=== PATIENT | male | born 1950 | race Caucasian/White ===

== ENCOUNTER 2017-08-17 19:17 | Emergency (ER) | payer OTHER ==
[2017-08-17 19:22] VITALS: BP 146/82; PULSE 79; TEMP 99.1; BMI 29.6
--- NOTE | 2017-08-17 19:43 | PDOC ---
History of Present Illness - General History Source: Patient Exam Limitations: No Limitations <Mone Bailey - Last Filed: 08/17/17 20:43> - General History Source: Patient Exam Limitations: No Limitations <Pati Graham I - Last Filed: 08/17/17 22:36> - General Chief Complaint: Syncope/Near Syncope Stated Complaint: SYNCOPE WITH FACIAL INJURY Time Seen by Provider: 08/17/17 19:31 - History of Present Illness Initial Comments: 08/17/17 20:05 The patient is a 67 year old male with past medical history of hypertension and prostate cancer who presents to the ED s/p syncopal episode earlier today. As per patient, he and his family were at the [employer] today. He states he was wearing his ski jacket while carrying his other family members jackets and was waiting for his family to finish using the bathroom where he felt faint. He subsequently crouched down and upon getting up he lost consciousness and hit his head and face on the floor. When the patient gained consciousness, he noticed everyone crowded around him. He also noted his nose was bleeding and his tooth was chipped. The patient denies any associated double vision, headache, numbness or tingling in extremities. He denies any fever, chills, nausea, vomiting, diarrhea. Denies any palpitations, diaphoresis , shortness of breath or chest pain. He denies any urinary symptoms. PAST MEDICAL HISTORY: hypertension and prostate cancer PAST SURGICAL HISTORY: no significant history FAMILY HISTORY: no pertinent history SOCIAL HISTORY: Pt lives with family and is employed. MEDICATIONS: reviewed ALLERGIES: As per nursing notes General: No fevers or chills, no weakness, no weight loss HEENT: Present: nose bleed, chipped tooth No change in vision. No sore throat,. No ear pain CardioVascular: No chest pain or shortness of breath Respiratory:No cough, or wheezing. Gastrointestinal: no nausea, vomiting, diarrhea or constipation, No rectal bleeding Genitourinary: No dysuria, hematuria, or frequency Musculoskeletal: No joint or muscle pain or swelling Neurologic: Present: syncope No headache, vertigo, dizziness Psychiatric: nor depression Skin: No rashes or easy bruising Endocrine: no increased thirst or abnormal weight change Allergic: no skin or latex allergy All other systems reviewed and normal General: Well-nourished well-developed individual, no acute distress HEENT: Throat: Normal, tonsils normal, no erythema or exudate. Abrasion and contusion over bridge of the nose. Abrasion of lower lift. Chip in left front tooth. Neck: Supple, no meningeal signs, no lymphadenopathy Eyes::Pupils equal reactive and round, extraocular motion intact Chest: Nontender to palpation Cardiac: S1-S2 normal, regular rate and rhythm, no murmurs rubs or gallops Respiratory: Lungs clear to auscultation bilateral Abdomen: Soft, nondistended, normal bowel sounds, nontender to palpation diffusely Extremities: Warm, dry, no cyanosis, clubbing, or edema Skin: No rashes Neuro: Alert and oriented x3, nonfocal exam, grossly intact, normal gait Psych: Normal mood and affect (Mone Bailey) A portion of this note was documented by scribe services under my direction. I have reviewed the details of the note, within reason, and agree with the documentation. The case summary and management plan written by me. Medical decision making this is a 67-year-old male who comes in status post a syncope event. Patient does not have history of syncope. Patient did not know he was given a syncopized and just woke up on the floor. Patient fell hard enough that he hit his face broke and chipped a tooth. Patient syncopal event was not witnessed by anyone he knew so was uncertain as to how long he was unconscious. Will obtain workup including CBC, comp, cardiac profile, d-dimer Will order CBC, nasal bone x-rays, chest x-ray, head CT Will reassess in follow-up. 08/17/17 21:[address] still pending patient without complaints, clinically stable walking around ED patient states that he wants to sign out AGAINST MEDICAL ADVICE if everything comes back negative 22:20 Patient's workup is complete there is a slight elevation in his white count of 14,000 but no left shift Chemistries are unremarkable with the exception of mildly elevated AST uncertain the etiology as none of the other liver enzymes are on elevated Patient's d-dimer is still pending patient does not want to wait for the results will leave AGAINST MEDICAL ADVICE and I will get off phone number where I can reach him and he has agreed to come back if it is elevated Patient's x-rays are all negative for any acute pathology Patient's head CT is negative for any acute pathology Patient will be discharged AGAINST MEDICAL ADVICE, patient understands that this could result in serious injury if he passes out again, or even . 08/17/17 22:35 Patient's d-dimer came back at 558 which is slightly elevated however when I just for age and normal is up to 670 which puts it well within the normal limit. (Pati Graham I) Past History <Mone Bailey - Last Filed: 08/17/17 20:43> - Past Medical History Anemia: No Asthma: No Cancer: Yes (PROSTATE) Cardiac Disorders: No CVA: No COPD: No CHF: No Dementia: No Diabetes: No GI Disorders: No Disorders: Yes (?BPH) HTN: Yes (DX 2010) Hypercholesterolemia: No Liver Disease: No Seizures: No Thyroid Disease: No - Surgical History Abdominal Surgery: No Appendectomy: No Cardiac Surgery: No Cholecystectomy: No Lung Surgery: No Neurologic Surgery: No Orthopedic Surgery: No - Immunization History Immunization Up to Date: Yes - Suicide/Smoking/Psychosocial Hx Smoking History: Never smoked Have you smoked in the past 12 months: No Hx Alcohol Use: Yes (RARELY) Drug/Substance Use Hx: No Substance Use Type: Alcohol Hx Substance Use Treatment: No <Pati Graham I - Last Filed: 08/17/17 22:36> - Past Medical History Allergies/Adverse Reactions: Allergies Allergy/AdvReac Type Severity Reaction Status Date / Time No Known Allergies Allergy Verified 03/02/16 14:22 Home Medications: Ambulatory Orders Cholecalciferol (Vitamin D3) [Vitamin D3] 2,000 unit PO DAILY #90 tablet Olmesartan Medoxomil [Benicar] 20 mg PO DAILY 08/17/17 Cardiac Specific PMH - Complaint Specific PMHX Pacemaker: No <Pati Graham I - Last Filed: 08/17/17 22:36> - Vital Signs Last Vital Signs Temp Pulse Resp BP Pulse Ox 99.1 F 79 16 146/82 98 08/17/17 19:19 08/17/17 19:19 08/17/17 19:19 08/17/17 19:19 08/17/17 19:19 Heart Score/ECG Review <Mone Bailey - Last Filed: 08/17/17 20:43> <Pati Graham I - Last Filed: 08/17/17 22:36> - ECG Intrepretation Comment:: 08/17/17 20:43 ECG obtained at 20:40 Normal sinus at 76 bpm (Mone Bailey) ED Treatment Course - LABORATORY CBC & Chemistry Diagram: 08/17/17 20:09 08/17/17 20:09 <Mone Bailey - Last Filed: 08/17/17 20:43> - LABORATORY CBC & Chemistry Diagram: 08/17/17 20:09 08/17/17 20:09 <Pati Graham I - Last Filed: 08/17/17 22:36> - ADDITIONAL ORDERS Additional order review: Laboratory Results 08/17/17 08/17/17 08/17/17 20:56 20:09 20:09 D-Dimer Sodium Potassium Chloride Carbon Dioxide Anion Gap BUN Creatinine Creat Clearance w eGFR Random Glucose Calcium Total Bilirubin AST ALT Alkaline Phosphatase Creatine Kinase 128 Troponin I < 0.03 Total Protein Albumin Urine Color Yellow Urine Appearance Clear Urine pH 5.0 Ur Specific Dexter 1.010 Urine Protein Negative Urine Glucose (UA) Negative Urine Ketones 2+ H Urine Blood Negative Urine Nitrite Negative Urine Bilirubin Negative Urine Urobilinogen 0.2 Ur Leukocyte Esterase Negative 08/17/17 08/17/17 20:09 20:09 D-Dimer 558 H Sodium 134 L Potassium 4.3 Chloride 102 Carbon Dioxide 25 Anion Gap 7 L BUN 29 H D Creatinine 1.3 Creat Clearance w eGFR 55.06 Random Glucose 93 Calcium 8.8 Total Bilirubin 0.6 D AST 33 D ALT 43 H D Alkaline Phosphatase 61 Creatine Kinase Troponin I Total Protein 7.0 Albumin 4.1 Urine Color Urine Appearance Urine pH Ur Specific Dexter Urine Protein Urine Glucose (UA) Urine Ketones Urine Blood Urine Nitrite Urine Bilirubin Urine Urobilinogen Ur Leukocyte Esterase 08/17/17 20:09 RBC 5.10 MCV 89.1 MCHC 34.5 RDW 12.8 MPV 7.4 L D Neutrophils % 73.3 D Lymphocytes % 16.7 D Monocytes % 6.8 Eosinophils % 0.8 Basophils % 2.4 H - RADIOLOGY Radiology Studies Ordered: Category Date Time Status HEAD CT WITHOUT CONTRAST [CT] Stat CT Scan 08/17/17 19:47 Taken CHEST X-RAY PORTABLE* [RAD] Stat Radiology 08/17/17 19:47 Taken NASAL BONES [RAD] Stat Radiology 08/17/17 20:59 Taken - Medications Given in the ED: ED Medications Discontinued Medications Generic Name Dose Route Start Last Admin Trade Name Gerri PRN Reason Stop Dose Admin Sodium Chloride 1,000 mls @ 500 mls/hr 08/17/17 21:20 08/17/17 20:30 Normal Saline - IV 08/17/17 23:19 500 mls/hr .Q1H ONE Administration *DC/Admit/Observation/Transfer <Mone Bailey - Last Filed: 08/17/17 20:43> - Discharge Dispostion Admit: No <Pati Graham I - Last Filed: 08/17/17 22:36> Diagnosis at time of Disposition: Syncope Qualifiers: Syncope type: unspecified Qualified Code(s): R55 - Syncope and collapse - Discharge Dispostion Disposition: AGAINST MEDICAL ADVICE Condition at time of disposition: Stable - Referrals Referrals: Ori Wylie MD [Primary Care Provider] - - Patient Instructions Printed Discharge Instructions: DI for Syncope in Adults (Fainting) Additional Instructions: You're leaving AGAINST MEDICAL ADVICE as it is recommended that you be admitted for a workup for syncope/passing out. I leaving AGAINST MEDICAL ADVICE you accept responsibility for any adverse outcome as a result of your leaving AGAINST MEDICAL ADVICE. This can includ, but is not limited to passing out again, serious injury or even as a result of passing out again. If at any time you change my come back to the emergency room for admission Your D-dimer test is still not available, this test is looking for a blood clot in your chest. If it is positive I will call you at the number you gave me and I anticipate that you will need to return to the ER for additional testing Return to the emergency department immediately with ANY new, persistent or worsening symptoms. Continue any medications as previously prescribed by your physician. You should follow up with your primary doctor as soon as possible regarding today's emergency department visit. . Please make sure your doctor reviews the results of your emergency evaluation. Thank you for coming to the Emergency Department today for your care. It was a pleasure to see you today. Please note that your evaluation is INCOMPLETE until you follow-up with your doctor. - Post Discharge Activity - Attestations Scribe Attestion: 08/17/17 20:05 Documentation prepared by Mone Bailey, acting as biomedical engineer for Pati Graham MD. (Lynn,Mone)
[2017-08-17 20:21] LABS: BASO % 2.4 % (0-2.0); EOS % 0.8 % (0-4.5); HEMATOCRIT 45.5 % (35.4-49); HEMOGLOBIN 15.7 GM/dl (11.7-16.9); LYMPH % 16.7 % (8-40); MCH 30.8 pg (25.7-33.7); MCHC 34.5 g/dl (32.0-35.9); MEAN CELL VOLUME 89.1 fl (80-96); MEAN PLT VOLUME 7.4 fl (7.5-11.1); MONO % 6.8 % (3.8-10.2); NEUT % 73.3 % (42.8-82.8); PLATELET COUNT 347 K/MM3 (134-434); RDW 12.8 % (11.9-15.9)
[2017-08-17 21:03] LABS: ALBUMIN 4.1 g/dl (3.5-5.0); ALK PHOS 61 U/L (32-92); ANION GAP 7 (8-16); BILIRUBIN,TOTAL 0.6 mg/dl (0.2-1.0); BLOOD UREA NITROGEN 29 mg/dl (7-18); CALCIUM 8.8 mg/dl (8.4-10.2); CHLORIDE 102 mmol/L (98-107); CO2 25 mmol/L (22-28); CREATININE 1.3 mg/dl (0.6-1.3); GLUCOSE,RANDOM 93 mg/dl (74-106); POTASSIUM 4.3 mmol/L (3.5-5.1); SGOT/AST 33 U/L (10-42); SGPT/ALT 43 U/L (10-40); SODIUM 134 mmol/L (136-145)
[2017-08-17 21:10] LABS: URINE APPEARANCE Clear; URINE BILIRUBIN Negative (NEGATIVE); URINE BLOOD Negative (NEGATIVE); URINE GLUCOSE (UA) Negative (NEGATIVE); URINE KETONE 2+ (NEGATIVE); URINE LEUK ESTERASE Negative (NEGATIVE); URINE NITRITE Negative (NEGATIVE); URINE PROTEIN Negative (NEGATIVE); URINE UROBILINOGEN 0.2 (0.2-1.0)
[2017-08-17 21:19] LABS: URINE COLOR YELLOW
[2017-08-17] MEDS ORDERED: SODIUM CHLORIDE 1,000 ML IV ONE (21:20)
--- NOTE | 2017-08-19 19:59 | EKG ---
Test Reason : Blood Pressure : / mmHG Vent. Rate : 076 BPM Atrial Rate : 076 BPM P-R Int : 170 ms QRS Dur : 094 ms QT Int : 394 ms P-R-T Axes : 052 033 021 degrees QTc Int : 443 ms NORMAL SINUS RHYTHM RSR' OR QR PATTERN IN V1 SUGGESTS RIGHT VENTRICULAR CONDUCTION DELAY NO PREVIOUS ECGS AVAILABLE Confirmed by LIDYA DAVIS MD ([id number]) on 08/19/2017 7:59:11 PM Referred By: AWAIS ZACARIAS Confirmed By:LIDYA DAVIS MD
== END 2017-08-17 22:34 | disposition left against medical advice (07) ==
LOC: FER 19:17
PROC: 3E0337Z Introduction of Electrolytic and Water Balance Substance into Peripheral Vein, Percutaneous Approach (ICD-10-PCS; principal; 2017-08-17)
DX: R55 Syncope and collapse (principal); I10 Essential (primary) hypertension; C61 Malignant neoplasm of prostate
CPT/HCPCS: 36415; 70160-TC-FY; 70450-TC; 71045-TC-FY; 80053; 81003; 82550; 84484; 85025; 85379; 93005; 99283-25

== ENCOUNTER 2021-07-24 08:45 | Day surgery (SDC) | payer OTHER, MEDICARE ==
[2021-07-20 14:56] VITALS: BMI 28.8
[2021-07-24 11:31] VITALS: BP 120/78; PULSE 60; TEMP 97.8
== END 2021-07-24 11:53 | disposition home or self-care (01) ==
LOC: FASU-ENDO 08:45
PROVIDERS: ATTEND Internal Medicine Gastroenterology
PROC: 0DBL8ZX Excision of Transverse Colon, Via Natural or Artificial Opening Endoscopic, Diagnostic (ICD-10-PCS; 2021-07-24)
PROC: 0DBH8ZX Excision of Cecum, Via Natural or Artificial Opening Endoscopic, Diagnostic (ICD-10-PCS; principal; 2021-07-24 10:44)
DX: Z86.010 Personal history of colon polyps (principal); Z83.71 Family history of colonic polyps; D12.0 Benign neoplasm of cecum; D12.2 Benign neoplasm of ascending colon
CPT/HCPCS: 88305-TC

== ENCOUNTER 2022-06-01 13:49 | Emergency (ER) | payer OTHER, MEDICARE ==
[2022-06-01 14:01] VITALS: BP 155/85; PULSE 57; RESP 18; TEMP 98.1; BMI 28.6
[2022-06-01] MEDS ORDERED: ACETAMINOPHEN 500 MG TABLET (FP) PO ONE (14:02)
[2022-06-01] MEDS ORDERED: ACETAMINOPHEN 325 MG TABLET (FP) ONE (14:06)
== END 2022-06-01 14:25 | disposition home or self-care (01) ==
LOC: FER 13:49
DX: S76.912A Strain of unspecified muscles, fascia and tendons at thigh level, left thigh, initial encounter (principal); X50.0XXA Overexertion from strenuous movement or load, initial encounter
CPT/HCPCS: 99283-25